=== PATIENT | female | born 1960 | race African-American/Black ===

== ENCOUNTER 2017-02-17 02:31 | Emergency (ER) | payer MEDICAID ==
[~2017-02-17] VITALS: Ht 167.6 cm; Wt 91.0 kg
[2017-02-17] MEDS ORDERED: ONDANSETRON HCL 4MG/2ML VIAL IV ONE (05:30)
[2017-02-17] MEDS ORDERED: MORPHINE SULFATE 4 MG/ML CPJ (NOT FOR IM USE) IV ONE (05:30)
[2017-02-17 06:40] VITALS: BP 110/70
== END 2017-02-17 06:53 | disposition home or self-care (01) ==
LOC: ER 03:52
DX: S06.9X1A Unspecified intracranial injury with loss of consciousness of 30 minutes or less, initial encounter (principal); M25.511 Pain in right shoulder; I10 Essential (primary) hypertension; F41.9 Anxiety disorder, unspecified; F32.9 Major depressive disorder, single episode, unspecified; Z59.0 Homelessness; W18.09XA Striking against other object with subsequent fall, initial encounter; Y93.89 Activity, other specified; Y92.89 Other specified places as the place of occurrence of the external cause
CPT/HCPCS: 70450; 73030; 93005; 96374; 96375; 99284; J2270; J2405; Z7610

== ENCOUNTER 2021-09-06 16:24 | Emergency (ER) | payer MEDICAID ==
[~2021-09-06] VITALS: Ht 162.6 cm; Wt 94.0 kg
[~2021-09-06 16:24] MED LIST: AMIT25TA9 PO; ASPI-864 PO; DOCU-138 PO; DOCU-155 PO; FLUO40CA8 PO; HYDR-459 PO; HYDR25TA PO; NAPR500T7 MT; SUMA25TA9 PO; VITAMIN D PO
[2021-09-06] MEDS ORDERED: SODIUM CHLORIDE 0.9% 1,000 ML IV ONE (19:00)
[2021-09-06] MEDS ORDERED: METOCLOPRAMIDE HCL 10MG/2ML VIAL IV ONE (19:00)
[2021-09-06] MEDS ORDERED: DIPHENHYDRAMINE 50MG/ML VIAL IV ONE (19:00)
[2021-09-06 22:08] VITALS: BP 142/79
== END 2021-09-06 20:08 | disposition home or self-care (01) ==
LOC: ER 16:24
DX: G43.909 Migraine, unspecified, not intractable, without status migrainosus (principal); E11.9 Type 2 diabetes mellitus without complications; F41.9 Anxiety disorder, unspecified; F32.A Depression, unspecified; I10 Essential (primary) hypertension; Z98.51 Tubal ligation status
CPT/HCPCS: 70450; 96361; 96374; 96375; 99284; J1200; J2765; J7030

== ENCOUNTER 2021-11-18 18:40 | Emergency (ER) | payer MEDICAID, OTHER ==
[~2021-11-18] VITALS: Ht 162.6 cm; Wt 103.0 kg
[2021-11-19] MEDS ORDERED: PROCHLORPERAZINE 10MG/2ML VIAL IM ONE
[2021-11-19] MEDS ORDERED: KETOROLAC 30MG/ML VIAL IM ONE
[2021-11-19] MEDS ORDERED: DIPHENHYDRAMINE 50MG/ML VIAL IM ONE
[2021-11-19 01:37] VITALS: BP 139/91
[2021-11-19] MEDS ORDERED: MAGN296S70 MT (02:16)
[2021-11-19] MEDS ORDERED: SENN-257 MT (02:16)
[2021-11-19] MEDS ORDERED: MAGNESIUM CITRATE 300ML SOLUTION PO NR (02:30)
== END 2021-11-19 02:33 | disposition home or self-care (01) ==
LOC: ER 18:40
DX: G43.909 Migraine, unspecified, not intractable, without status migrainosus (principal); K59.00 Constipation, unspecified
CPT/HCPCS: 96372; 99284; J0780; J1200; J1885

== ENCOUNTER 2022-11-29 14:09 | Emergency (ER) | payer MEDICAID, OTHER ==
[~2022-11-29] VITALS: Ht 162.6 cm; Wt 89.0 kg
[~2022-11-29 14:09] MED LIST changes: +MAGN296S70 MT; +SENN-257 MT
[2022-11-29 14:11] VITALS: BP 189/122
[2022-11-29] MEDS ORDERED: ACETAMINOPHEN 325MG TABLET PO STA (14:45)
[2022-11-29] MEDS ORDERED: TETANUS, DIPHTHERIA, PERTUSSIS VAC/PF 0.5ML (>10YR OLD) IM ONE (14:45)
[2022-11-29] MEDS ORDERED: KETOROLAC 60MG/2ML VIAL IM ONE (15:45)
[2022-11-29] MEDS ORDERED: CEPH500C2 MT (17:03)
[2022-11-29] MEDS ORDERED: IBUP-2029 MT (17:03)
== END 2022-11-29 17:19 | disposition home or self-care (01) ==
LOC: ER 14:32
DX: S09.8XXA Other specified injuries of head, initial encounter (principal); S80.02XA Contusion of left knee, initial encounter; S80.212A Abrasion, left knee, initial encounter; Y08.89XA Assault by other specified means, initial encounter; Y93.89 Activity, other specified; Y92.89 Other specified places as the place of occurrence of the external cause
CPT/HCPCS: 70450; 90471; 90715; 96372; 99284; J1885

== ENCOUNTER 2023-09-08 18:31 | Emergency (ER) | payer OTHER ==
[~2023-09-08] VITALS: Ht 162.6 cm; Wt 90.0 kg
[~2023-09-08 18:31] MED LIST changes: +CEPH500C2 MT; +IBUP-2029 MT
[2023-09-08 18:45] VITALS: O2SAT 99
[2023-09-08] MEDS ORDERED: LACTATED RINGERS 1,000 ML IV SCH (19:15)
[2023-09-08] MEDS ORDERED: METOCLOPRAMIDE HCL 10MG/2ML VIAL IV ONE (19:15)
[2023-09-08] MEDS ORDERED: KETOROLAC 15MG/ML VIAL IV ONE (19:15)
[2023-09-08 20:59] LABS: BASOPHILS % 0.4 % (0.0-2.0); HEMATOCRIT. 42.4 % (36.0-48.0); HEMOGLOBIN. 13.9 g/dL (12.0-16.0); LYMPHOCYTES % 23.2 % (20.0-50.0); MEAN CORPUSCULAR HEMOGLOBIN 27.5 pg (28.0-32.0); MEAN CORPUSCULAR HGB CONC 32.7 g/dL (31.0-37.0); MEAN CORPUSCULAR VOLUME 84.2 fL (81.0-99.0); MEAN PLATELET VOLUME 7.6 fl (7.4-10.4); MONOCYTES % 3.8 % (2.0-8.0); NEUTROPHILS % 71.6 % (40.0-76.0); PLATELET 367 x1000/uL (130-400); RED BLOOD CELL COUNT 5.03 mill/uL (4.2-5.4); WHITE BLOOD COUNT 12.4 x1000/uL (4.5-11.0)
[2023-09-08 21:25] LABS: CHLORIDE 105 mEq/L (98-107); INDEX HEMOLYSI 2 (1-3); INDEX ICTERIC 1 (1-4); INDEX LIPEMIC 1 (1-3); SODIUM 141 mEq/L (136-145)
[2023-09-08 21:32] LABS: ALANINE AMINOTRANSFERASE 26 IU/L (13-61); ALBUMIN 4.2 g/dL (3.4-5.0); ASPARTATE AMINOTRANSFERASE 18 IU/L (15-37); BILIRUBIN TOTAL 0.3 mg/dL (0.1-1.0); CALCIUM 9.4 mg/dL (8.5-10.1); CARBON DIOXIDE 30 mEq/L (21-32); GLUCOSE 160 mg/dL (70-105); PROTEIN TOTAL 8.3 g/dL (6.0-8.3); UREA NITROGEN BLOOD 16 mg/dL (7-21)
[2023-09-08] MEDS ORDERED: POTASSIUM CHLORIDE 20MEQ/PACKET PO ONE (22:00)
[2023-09-09] MEDS ORDERED: KETOROLAC 15MG/ML VIAL IV NR (01:00)
[2023-09-09] MEDS ORDERED: METOCLOPRAMIDE HCL 10MG/2ML VIAL IV NR (01:00)
[2023-09-09] MEDS ORDERED: POTASSIUM CHLORIDE 20MEQ/PACKET PO NR (01:00)
[2023-09-09 02:45] VITALS: BP 140/90; PULSE 88; RESP 15; TEMP 98.3
== END 2023-09-09 02:50 | disposition home or self-care (01) ==
LOC: ER 18:31
DX: R11.2 Nausea with vomiting, unspecified (principal); R19.7 Diarrhea, unspecified; R51.9 Headache, unspecified; E87.6 Hypokalemia; F41.9 Anxiety disorder, unspecified; F32.9 Major depressive disorder, single episode, unspecified; E11.9 Type 2 diabetes mellitus without complications; I10 Essential (primary) hypertension; Z98.51 Tubal ligation status; Z90.49 Acquired absence of other specified parts of digestive tract; Z79.899 Other long term (current) drug therapy
CPT/HCPCS: 80053; 83690; 85025; 36415; 99285; 96374; 96375; Z7610 ×3; J1885; J2765

== ENCOUNTER 2024-10-31 12:17 | Emergency (ER) | payer OTHER ==
[~2024-10-31] VITALS: Ht 162.6 cm; Wt 89.0 kg
[~2024-10-31 12:17] MED LIST changes: +NAPR-1486 MT; -NAPR500T7 MT; -SENN-257 MT; +SENN-362 MT
[2024-10-31 12:25] VITALS: O2SAT 98
[2024-10-31] MEDS: KETOROLAC 30MG/ML VIAL IM ONE (13:48)
[2024-10-31] MEDS: ACETAMINOPHEN 325MG TABLET PO ONE (13:48)
[2024-10-31] MEDS ORDERED: CYCL10TA21 MT (13:53)
[2024-10-31 14:03] VITALS: BP 148/86; PULSE 100; RESP 16; TEMP 36.72516; O2SAT 98
== END 2024-10-31 14:24 | disposition home or self-care (01) ==
LOC: ER 12:17
DX: M62.838 Other muscle spasm (principal); G43.909 Migraine, unspecified, not intractable, without status migrainosus; F41.9 Anxiety disorder, unspecified; F32.A Depression, unspecified; I10 Essential (primary) hypertension; Z79.899 Other long term (current) drug therapy; V49.9XXA Car occupant (driver) (passenger) injured in unspecified traffic accident, initial encounter; Y93.89 Activity, other specified; Y92.89 Other specified places as the place of occurrence of the external cause; Y99.8 Other external cause status
CPT/HCPCS: 99283; 73030; 96372; J1885

== ENCOUNTER 2024-12-04 18:51 | Emergency (ER) | payer MEDICAID ==
[~2024-12-04] VITALS: Ht 162.6 cm; Wt 89.0 kg
[~2024-12-04 18:51] MED LIST changes: -CEPH500C2 MT; +CYCL10TA21 MT; -IBUP-2029 MT; +LEVO-65 MT; -NAPR-1486 MT
[2024-12-04 19:08] VITALS: O2SAT 99
[2024-12-04] MEDS ORDERED: CYCL5TAB3 MT (21:25)
[2024-12-04] MEDS ORDERED: INDO50CA98 MT (21:25)
[2024-12-04] MEDS ORDERED: LIDO700A15 TP (21:25)
[2024-12-04] MEDS ORDERED: COLC0.6C3 MT (21:25)
[2024-12-04] MEDS: COLCHICINE 0.6MG TABLET PO ONE (21:27)
[2024-12-04] MEDS: LIDOCAINE 5% PATCH TOP SCH (21:27)
[2024-12-04 22:09] VITALS: BP 146/82; PULSE 90; RESP 16; TEMP 36.89184; O2SAT 99
== END 2024-12-04 22:10 | disposition home or self-care (01) ==
LOC: ER 18:51
DX: M10.9 Gout, unspecified (principal); M79.671 Pain in right foot; I10 Essential (primary) hypertension; F32.A Depression, unspecified; F41.9 Anxiety disorder, unspecified; Z76.0 Encounter for issue of repeat prescription; Z79.899 Other long term (current) drug therapy
CPT/HCPCS: 99283